=== PATIENT | female | born 1985 ===

== ENCOUNTER 2021-08-28 00:50 | Inpatient (IN) | payer MEDICAID, SELFPAY ==
[2021-08-28 01:47] VITALS: BP 129/92; PULSE 68; RESP 18; TEMP 37.2; O2SAT 98
[2021-08-28 01:48] VITALS: BMI 31.1
[2021-08-28] MEDS: acetaminophen 325 mg Tablet 650 MG PO ×2 (04:46→21:05)
[2021-08-28] MEDS: blistex lip oint 7 gm Tube 1 APPLIC TOPICAL ×2 (04:54→17:31)
[2021-08-28 06:00] VITALS: BP 125/83; PULSE 70; RESP 17; TEMP 37.2; O2SAT 96
[2021-08-28] MEDS: cephALEXin 500 mg Capsule PO ×2 (08:26→21:05)
--- NOTE | 2021-08-28 11:58 | NPU.GN ---
[facility] Topic:Von General Mood of Group: Manda did not attend group therapy today, she wanted to sleep.
--- NOTE | 2021-08-28 11:59 | NPU.GN ---
[facility] Topic:Von General Mood of Group: Manda did not attend group therapy today she wanted to sleep.
[2021-08-28 14:00] VITALS: BP 130/72; PULSE 75; RESP 18; TEMP 36.8; O2SAT 96
--- NOTE | 2021-08-28 14:36 | PC.NURSE ---
TC TO [facility] TO CONFIRM PATIENTS HOME MEDICATIONS -CELEBREX 200MG PO BID -ZYRTEC 10MG DAILY -SEROQUEL 200MG Q AM 1/2 TAB NOON 1/2 TAB HS -GABAPENTIN 600MG TID -CYMBALTA 60 DELAYED RELEASED DAILY -TOPAMAX 50MG BID
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
[2021-08-28 20:39] VITALS: BP 107/67; PULSE 79; RESP 15; TEMP 36.6; O2SAT 97
[2021-08-28] MEDS: hyDROXYzine 25 mg Capsule 50 MG PO (21:05)
[2021-08-28] MEDS: trazodone 50 mg Tablet PO (21:05)
[2021-08-29 06:00] VITALS: BP 119/73; PULSE 65; RESP 16; TEMP 36.4; O2SAT 98
[2021-08-29] MEDS: cephALEXin 500 mg Capsule PO ×2 (09:40→21:03)
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
--- NOTE | 2021-08-29 12:18 | NPU.GN ---
[facility] Topic:Coping Skills Bingo/ Cross word puzzle General Mood of Group: Manda did not attend and participate in group therapy this morning. Manda wanted to sleep.
[2021-08-29 12:20] VITALS: PULSE 82; RESP 18; O2SAT 97
[2021-08-29 14:00] VITALS: BP 123/75; PULSE 82; RESP 15; TEMP 36.6; O2SAT 97
[2021-08-29 20:09] VITALS: BP 138/91; PULSE 84; RESP 17; TEMP 36.6; O2SAT 94
[2021-08-29 20:28] VITALS: PULSE 79; RESP 17; O2SAT 98
[2021-08-29] MEDS: quetiapine 100 mg Tablet PO (21:01)
[2021-08-29] MEDS: acetaminophen 325 mg Tablet 650 MG PO (21:01)
[2021-08-29] MEDS: gabapentin 300 mg Capsule 600 MG PO (21:01)
[2021-08-29] MEDS: trazodone 100 mg Tablet PO (21:03)
--- NOTE | 2021-08-30 04:16 | PC.NURSE ---
Patient resting in bed. Calm and cooperative with flat affect. Reports depression remains high this evening. Denies anxiety. Denies SI/HI or AVH. Also reported pain of a 10. Patient received PRN Tylenol to good effect with night meds. Has remained in bed resting with eyes closed. No further complaints have been voiced.
[2021-08-30 06:00] VITALS: BP 131/84; PULSE 72; RESP 17; TEMP 37; O2SAT 97
[2021-08-30] MEDS: cephALEXin 500 mg Capsule PO ×2 (08:24→20:27)
[2021-08-30] MEDS: gabapentin 300 mg Capsule 600 MG PO ×3 (08:25→20:27)
[2021-08-30] MEDS: topiramate 25 mg Tablet 50 MG PO (08:25)
[2021-08-30] MEDS: quetiapine 100 mg Tablet 200 MG PO (08:25)
[2021-08-30] MEDS: CELEcoxib 100 mg Capsule 200 MG PO ×2 (09:24→20:28)
[2021-08-30] MEDS: quetiapine 100 mg Tablet PO ×2 (12:37→20:28)
[2021-08-30] MEDS: topiramate 100 mg Tablet 50 MG PO (12:37)
--- NOTE | 2021-08-30 13:06 | NPU.GN ---
[facility] Topic:Coping Kills Checklist General Mood of Group: Manda did attend group today and was talkative and participated. When it came to sharing the activity that she did she did not want to participate .
[2021-08-30 14:00] VITALS: BP 117/63; PULSE 87; RESP 20; TEMP 36.9; O2SAT 98
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
[2021-08-30 19:50] VITALS: PULSE 66; RESP 16; O2SAT 97
[2021-08-30] MEDS: albuterol 8 gm MDI 4 PUFF INHALATION (19:50)
[2021-08-30 19:56] VITALS: BP 121/78; PULSE 85; RESP 17; TEMP 36.4; O2SAT 100
--- NOTE | 2021-08-30 20:00 | PC.NURSE ---
Upon assessment patient lying in bed. Patient alert/groggy. Patient rated depression 9, anxiety 7. She c/o pain all over 910. Patient was lethargic and encouraged to drink more fluids. Patient has been withdrawn and isolating to her room. Will continue to monitor and follow plan of care. Q 15 min safety checks per protocol.
[2021-08-30] MEDS: trazodone 100 mg Tablet PO (20:27)
[2021-08-30] MEDS: acetaminophen 325 mg Tablet 650 MG PO (20:28)
[2021-08-31 06:00] VITALS: BP 140/76; PULSE 77; RESP 19; TEMP 36.6; O2SAT 96
[2021-08-31] MEDS: albuterol 8 gm MDI 4 PUFF INHALATION ×2 (09:10→19:45)
[2021-08-31 09:12] VITALS: PULSE 71; RESP 18; O2SAT 98
[2021-08-31] MEDS: gabapentin 300 mg Capsule 600 MG PO ×3 (09:46→21:44)
[2021-08-31] MEDS: CELEcoxib 100 mg Capsule 200 MG PO ×2 (09:46→17:44)
[2021-08-31] MEDS: topiramate 25 mg Tablet 50 MG PO (09:46)
[2021-08-31] MEDS: cephALEXin 500 mg Capsule PO ×2 (09:47→21:44)
[2021-08-31] MEDS: quetiapine 100 mg Tablet 200 MG PO (09:47)
[2021-08-31] MEDS: topiramate 100 mg Tablet 50 MG PO (11:39)
[2021-08-31] MEDS: quetiapine 100 mg Tablet PO ×2 (11:40→21:44)
[2021-08-31 14:00] VITALS: BP 118/74; PULSE 84; RESP 17; TEMP 37; O2SAT 99
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
--- NOTE | 2021-08-31 17:07 | PC.NURSE ---
clothing Pt stated that she did not want to wear her dirty clothes home that she arrived in. Pt wishes to have laundry wash her clothing.
[2021-08-31] MEDS: lamoTRIgine 25 mg Tablet PO (17:44)
[2021-08-31 19:45] VITALS: PULSE 74; RESP 16; O2SAT 99
[2021-08-31 21:03] VITALS: BP 107/68; PULSE 89; RESP 15; TEMP 36.7; O2SAT 99
[2021-08-31] MEDS: trazodone 100 mg Tablet PO (21:45)
[2021-09-01 06:00] VITALS: BP 102/66; PULSE 60; RESP 18; TEMP 37; O2SAT 100
[2021-09-01] MEDS: albuterol 8 gm MDI 4 PUFF INHALATION ×2 (09:14→19:20)
[2021-09-01 10:07] VITALS: PULSE 60; RESP 18; O2SAT 98
[2021-09-01] MEDS: gabapentin 300 mg Capsule 600 MG PO ×3 (11:14→20:39)
[2021-09-01] MEDS: CELEcoxib 100 mg Capsule 200 MG PO ×2 (11:14→17:21)
[2021-09-01] MEDS: quetiapine 100 mg Tablet 200 MG PO (11:15)
[2021-09-01] MEDS: lamoTRIgine 25 mg Tablet PO (11:15)
[2021-09-01] MEDS: topiramate 25 mg Tablet 50 MG PO (11:15)
[2021-09-01] MEDS: cephALEXin 500 mg Capsule PO ×2 (11:19→20:39)
[2021-09-01 12:00] VITALS: O2SAT 98
[2021-09-01] MEDS: topiramate 100 mg Tablet 50 MG PO (12:49)
[2021-09-01] MEDS: quetiapine 100 mg Tablet PO ×2 (12:49→20:39)
[2021-09-01 14:00] VITALS: BP 99/62; PULSE 101; RESP 20; TEMP 36.9; O2SAT 96
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
[2021-09-01] MEDS: nicotine 21 mg Patch 1 PATCH TRANSDERMA (15:04)
[2021-09-01 19:20] VITALS: PULSE 99; RESP 16; O2SAT 98
[2021-09-01] MEDS: trazodone 100 mg Tablet PO (20:39)
[2021-09-01] MEDS: hyDROXYzine 25 mg Capsule 50 MG PO (20:50)
[2021-09-01 22:00] VITALS: BP 130/80; PULSE 101; RESP 18; TEMP 36.8; O2SAT 97
--- NOTE | 2021-09-02 01:29 | PC.NURSE ---
Patient requested and received PRN medications- Vistaril- 2150 for anxiety to good effect. No further complaints at this time.
[2021-09-02] MEDS: trazodone 50 mg Tablet PO (02:13)
--- NOTE | 2021-09-02 03:54 | PC.NURSE ---
Patient up at 0200. Reports waking frequently. Patient ate snack and took PRN Trazodone at 0215. Patient has been in bed resting with eyes closed since. No further complaints at this time.
[2021-09-02 06:00] VITALS: BP 105/71; PULSE 80; RESP 17; TEMP 36.9; O2SAT 98
[2021-09-02] MEDS: lamoTRIgine 25 mg Tablet PO (08:25)
[2021-09-02] MEDS: quetiapine 100 mg Tablet 200 MG PO (08:25)
[2021-09-02] MEDS: CELEcoxib 100 mg Capsule 200 MG PO ×2 (08:25→20:30)
[2021-09-02] MEDS: gabapentin 300 mg Capsule 600 MG PO ×3 (08:26→20:28)
[2021-09-02] MEDS: cephALEXin 500 mg Capsule PO ×2 (08:26→20:30)
[2021-09-02] MEDS: topiramate 25 mg Tablet 50 MG PO (08:26)
[2021-09-02] MEDS: albuterol 8 gm MDI 4 PUFF INHALATION ×2 (11:00→20:25)
--- NOTE | 2021-09-02 11:08 | PC.NURSE ---
PER DR. RUSSELL, PATIENT MAY SHAVE WITH SUPERVISION.
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
[2021-09-02 11:19] VITALS: PULSE 80; RESP 16; O2SAT 98
[2021-09-02] MEDS: quetiapine 100 mg Tablet PO ×2 (12:11→20:29)
[2021-09-02] MEDS: topiramate 100 mg Tablet 50 MG PO (12:11)
[2021-09-02] MEDS: nicotine 21 mg Patch 1 PATCH TRANSDERMA (12:11)
[2021-09-02 14:00] VITALS: BP 97/62; PULSE 98; RESP 20; TEMP 36.9; O2SAT 96
[2021-09-02] MEDS: acetaminophen 325 mg Tablet 650 MG PO (18:06)
[2021-09-02 20:00] VITALS: BP 121/78; PULSE 98; RESP 18; TEMP 36.8; O2SAT 98
[2021-09-02 20:25] VITALS: PULSE 84; RESP 16; O2SAT 99
[2021-09-02] MEDS: trazodone 100 mg Tablet PO (20:30)
[2021-09-02] MEDS: hyDROXYzine 25 mg Capsule 50 MG PO (22:39)
[2021-09-02] MEDS: ibuprofen 600 mg Tablet PO (22:39)
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
[2021-09-03 06:00] VITALS: BP 111/72; PULSE 87; RESP 20; TEMP 36.9; O2SAT 97
[2021-09-03 07:50] VITALS: PULSE 101; RESP 16; O2SAT 98
[2021-09-03] MEDS: cephALEXin 500 mg Capsule PO ×2 (07:50→20:36)
[2021-09-03] MEDS: lamoTRIgine 25 mg Tablet PO (07:50)
[2021-09-03] MEDS: albuterol 8 gm MDI 4 PUFF INHALATION (07:50)
[2021-09-03] MEDS: CELEcoxib 100 mg Capsule 200 MG PO ×2 (07:50→20:35)
[2021-09-03] MEDS: topiramate 25 mg Tablet 50 MG PO (07:51)
[2021-09-03] MEDS: gabapentin 300 mg Capsule 600 MG PO ×3 (07:51→20:36)
[2021-09-03] MEDS: quetiapine 100 mg Tablet 200 MG PO (07:51)
--- NOTE | 2021-09-03 08:16 | PC.NURSE ---
PATIENT CAME TO DESK ASKING FOR SUPPLIES TO TAKE A SHOWER, STAFF COMPLIED, SHE TOOK ITEMS TO ROOM AND WENT BACK TO BED
[2021-09-03] MEDS: nicotine 21 mg Patch 1 PATCH TRANSDERMA (09:00)
[2021-09-03] MEDS: topiramate 100 mg Tablet 50 MG PO (12:15)
[2021-09-03 14:00] VITALS: BP 100/61; PULSE 101; RESP 20; TEMP 36.7; O2SAT 99
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
[2021-09-03] MEDS: OLANZapine 5 mg ODT PO (17:51)
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
--- NOTE | 2021-09-03 19:29 | NPU.GN ---
[facility] Group Topic:Stress General Mood of Group:Patient was in group on time, dressed appropriately, with good hygiene. The patient participated in group activities. Today the group was able to work on the stress worksheet. Each individually and together. The patient did share information from the worksheet with the group. The patient did ask questions and responded to other patients in the group.
[2021-09-03 20:22] VITALS: BP 126/79; PULSE 86; RESP 15; TEMP 37; O2SAT 98
[2021-09-03] MEDS: hyDROXYzine 25 mg Capsule 50 MG PO (20:35)
[2021-09-03] MEDS: trazodone 100 mg Tablet PO (20:35)
[2021-09-03] MEDS: quetiapine 100 mg Tablet PO (20:35)
[2021-09-03] MEDS: ibuprofen 600 mg Tablet PO (20:35)
--- NOTE | 2021-09-03 20:35 | PC.NURSE ---
pt c/o increased anxiety due to a headache, motrin 600mg po and vistaril 50mg po given.
--- NOTE | 2021-09-03 22:00 | PC.NURSE ---
pt resting quietly with both eyes closed.
[2021-09-03 23:02] VITALS: PULSE 90; RESP 16; O2SAT 97
--- NOTE | 2021-09-04 01:21 | PC.NURSE ---
Patient up at start of shift. Denied SI/HI or AVH. Did endorse mild anxiety and tension. Took PRN Vistaril and listened to a song to help. These things were effective and patient went to bed. Also took PRN Ibuprofen to good effect at . In bed with eyes closed at this time. No further complaints voiced. No signs of distress noted.
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
[2021-09-04 06:00] VITALS: BP 102/69; PULSE 72; RESP 18; TEMP 37.1; O2SAT 98
--- NOTE | 2021-09-04 07:52 | US_ITS ---
WS: [id number] ULTRASOUND SOFT TISSUES LEFT antecubital fossa. HISTORY: left upper extremity, vascular nodularity at AC fossa, pain COMPARISON: None available. TECHNIQUE: 2-D and color Doppler imaging is submitted. Hyperechoic soft tissue in the antecubital fossa with central cystic area. This area of abnormality m easures 2.5 x 1.0 x 2.7 cm. There is no increased vascularity. This is probably the residual of a hem atoma. No focal abscess collection. US/US soft tissue/extremity 18509 IMPRESSION: Soft tissue hematoma in the LEFT antecubital fossa.
[2021-09-04] MEDS: gabapentin 300 mg Capsule 600 MG PO ×3 (08:32→20:00)
[2021-09-04] MEDS: lamoTRIgine 25 mg Tablet PO (08:32)
[2021-09-04] MEDS: CELEcoxib 100 mg Capsule 200 MG PO ×2 (08:32→20:00)
[2021-09-04] MEDS: cephALEXin 500 mg Capsule PO (08:32)
[2021-09-04] MEDS: topiramate 25 mg Tablet 50 MG PO (08:32)
--- NOTE | 2021-09-04 08:38 | PC.NURSE ---
refused scheduled Seroquel
[2021-09-04] MEDS: albuterol 8 gm MDI 4 PUFF INHALATION ×2 (09:00→15:50)
--- NOTE | 2021-09-04 09:44 | USCV_ITS ---
Manda Villanueva Age: 36 Gender: F : 1985 Exam Date: 09/04/2021 13:30 Ordering Phys: Thai Brito MD Technologist: TONYA [place] [facility] [place] Indication: vascular nodularity at ac fossa. pain PROCEDURES: Venous duplex imaging was performed in only the left upper extremity. The following venous structures were evaluated: internal jugular vein, subclavian vein, axillary vein, and brachial veins. In addition, the basilic vein, cephalic vein, radial vein, and ulnar vein. Serial compression, augmentation maneuvers, and spectral Doppler flow evaluation were performed. FINDINGS: Normal 2-D, color Doppler and phasicity noted in the left upper extremity venous system extending from the left internal jugular vein through the main forearm. No thrombosis or occlusion noted. CONCLUSIONS No left upper extremity DVT. Dr. Lyubov No DO (Electronically Signed) Final Date: 04 September 2021 14:50 S
[2021-09-04] MEDS: nicotine 21 mg Patch 1 PATCH TRANSDERMA (11:22)
[2021-09-04] MEDS: topiramate 100 mg Tablet 50 MG PO (12:04)
--- NOTE | 2021-09-04 12:05 | PC.NURSE ---
REFUSED SCHEDULED SEROQUEL @ 1200
--- NOTE | 2021-09-04 13:18 | PC.NURSE ---
off unit to ultrasound
[2021-09-04 13:26] LABS: C Reactive Protein 1.5 mg/L (0.0-4.9)
[2021-09-04 14:00] VITALS: BP 126/79; PULSE 104; RESP 18; TEMP 37; O2SAT 97
[2021-09-04 14:32] LABS: Alkaline Phosphatase 65 IU/L (35-105); Blood Urea Nitrogen 21 mg/dL (6-20); Carbon Dioxide 21 mmol/L (22-29); Chloride 102 mmol/L (98-107); Glomerular Filtration Rate 114.4 mL/min (90-130); Glucose 92 mg/dL (65-115); Osmolality Calculated 289 mOsm/kg (285-295); Sodium 138 mmol/L (136-145); Thyroid Stimulating Hormone 1.67 uIU/mL (0.27-4.20); Total Bilirubin 0.2 mg/dL (0.15-1.2)
[2021-09-04 14:37] LABS: Anion Gap 19.3 (5-19); Potassium 4.3 mmol/L (3.5-5.1)
[2021-09-04 14:50] LABS: Iron 68 ug/dL (37-145); Percent Saturation 18.6 % (20-50); Total Iron Binding Capacity 364 mcg/dl; Unsaturated Iron Binding 296 ug/dL (112-347)
[2021-09-04] MEDS: quetiapine 100 mg Tablet PO ×3 (15:08→20:00)
[2021-09-04 15:59] LABS: Alanine Aminotransferase 17 U/L (0-33); Aspartate Amino Transferase 16 U/L (0-32)
--- NOTE | 2021-09-04 16:23 | NPU.GN ---
[facility] Group Topic:Jinga (Addiction) General Mood of Group: Patient did come to group and did participate. Patient was on time, dressed appropriately and had good hygiene. The group played addiction Jinga. They read a question off of each jinga block they pulled and shared with the group the answer to their question. Group did make a brief trip outside for some air. They were all in a great mood, they all communicated with each other well.
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
[2021-09-04] MEDS: amoxicillin-clav 500-125 mg Tablet 1 TAB PO (20:00)
[2021-09-04] MEDS: trazodone 100 mg Tablet PO (20:00)
[2021-09-04 20:07] VITALS: RESP 17; TEMP 36.6; O2SAT 99
[2021-09-04] MEDS: nicotine 2 mg Gum BUCCAL (20:17)
--- NOTE | 2021-09-05 02:13 | PC.NURSE ---
Patient up at start of shift. Calm and cooperative. Denies SI/HI or AVH. Denied anxiety and depression at start of shift. Patient has been sleeping much of night. Is awake, eating snack in room at this time. Calm and cooperative. No complaints.
[2021-09-05 06:00] VITALS: BP 131/76; PULSE 79; RESP 18; TEMP 36.4; O2SAT 95
[2021-09-05] MEDS: levoFLOXacin 500 mg Tablet PO (07:00)
[2021-09-05 08:07] LABS: Basophils % 0.3 %; Eosinophils # 0.2 10^3/uL (0.0-0.8); Hematocrit 36.8 % (37.0-47.0); Hemoglobin 11.7 g/dL (11.5-15.3); Lymphocytes % 25.5 %; Mean Corpuscular HGB Conc 31.8 g/dL (30.0-36.0); Mean Corpuscular Volume 91.3 fl (81-99); Mean Platelet Volume 10.7 fL (7.4-10.4); Monocytes # 0.6 10^3/uL (0.2-0.9); Monocytes % 7.4 %; Neutrophils # 5.01 10^3/uL (1.8-7.7); Nucleated Red Blood Cells % 0 %; Platelet Count 279 10^3/cmm (130-400); Red Blood Count 4.03 10^6/uL (4.1-5.3); Red Cell Distribution Width 12.9 % (12.1-15.1)
[2021-09-05 08:19] LABS: D Dimer 0.48 ug/mIFEU (0-0.59)
[2021-09-05 08:23] VITALS: PULSE 99; RESP 20; O2SAT 98
[2021-09-05] MEDS: albuterol 8 gm MDI 4 PUFF INHALATION (08:23)
[2021-09-05 08:51] LABS: Estmated Average Glucose 105; Hemoglobin A1C 5.3 % (4.0-6.0)
[2021-09-05 09:00] VITALS: O2SAT 98
[2021-09-05] MEDS: gabapentin 300 mg Capsule 600 MG PO ×3 (09:17→20:11)
[2021-09-05] MEDS: topiramate 25 mg Tablet 50 MG PO (09:17)
[2021-09-05] MEDS: amoxicillin-clav 500-125 mg Tablet 1 TAB PO ×3 (09:17→20:15)
[2021-09-05] MEDS: lamoTRIgine 25 mg Tablet PO (09:17)
[2021-09-05] MEDS: CELEcoxib 100 mg Capsule 200 MG PO ×2 (09:17→20:11)
[2021-09-05] MEDS: nicotine 21 mg Patch 1 PATCH TRANSDERMA (10:37)
--- NOTE | 2021-09-05 11:35 | NPU.GN ---
[facility] NeuroPsych Unit Group Topic:Stress Map General Mood of Group: Manda Martinez attended group today. Manda was active with the group activity and also gave feedback and shared her story with others. Manda also tried to help another patient with providing DBT advice to the patient to help with anxiety. Manda was in good spirits today.
[2021-09-05] MEDS: quetiapine 100 mg Tablet PO ×2 (13:09→20:11)
[2021-09-05] MEDS: topiramate 100 mg Tablet 50 MG PO (13:09)
[2021-09-05 13:46] VITALS: BP 126/79; PULSE 108; RESP 20; TEMP 37.1; O2SAT 96
--- NOTE | 2021-09-05 13:58 | PC.NURSE ---
prn Administered Zofran 4mg to pt c/o nausea. Will continue to monitor.
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
[2021-09-05] MEDS: hyDROXYzine 25 mg Capsule 50 MG PO (19:32)
[2021-09-05 20:11] VITALS: BP 114/71; PULSE 112; RESP 18; TEMP 36.7; O2SAT 97
[2021-09-05] MEDS: trazodone 100 mg Tablet PO (20:11)
[2021-09-06] MEDS: hyDROXYzine 25 mg Capsule 50 MG PO ×2 (03:23→21:21)
[2021-09-06 05:49] VITALS: BP 101/65; PULSE 73; RESP 18; TEMP 37.3; O2SAT 96
--- NOTE | 2021-09-06 06:27 | PC.NURSE ---
Patient calm and cooperative at start of shift. Interacting well with peers. Good affect, smiling. Denies any SI/HI, AVH, anxiety and depression at this time. In bed resting with eyes closed most of night. Did wake when new admit arrived to room. Was startled upon waking and became tearful. Patient remained in bed initially but then did request PRN Vistaril. Took Vistaril to good effect and was able to return to bed.
--- NOTE | 2021-09-06 06:58 | PC.NURSE ---
Addendum entered by Lauren Carroll RN 09/06/21 07:20: Patient returned and asked nurse to include in note that she would like to try Wellbutrin instead if able to help with cravings as well. Original Note: Cymbalta Patient reports taking Cymbalta 60 mg QD prior to admitting to unit. States that she thought she had been taking it here. Reports feeling more emotional and feeling shocks/zaps d/t not being on it now. States these feelings are what made her come and ask if she was currently on it here. Patient would like to resume this LEDA.
[2021-09-06] MEDS: topiramate 25 mg Tablet 50 MG PO (09:15)
[2021-09-06] MEDS: gabapentin 400 mg Capsule 800 MG PO ×4 (09:15→20:33)
[2021-09-06] MEDS: lamoTRIgine 25 mg Tablet PO (09:15)
[2021-09-06] MEDS: amoxicillin-clav 500-125 mg Tablet 1 TAB PO ×3 (09:16→15:44)
[2021-09-06] MEDS: levoFLOXacin 500 mg Tablet PO (09:16)
[2021-09-06] MEDS: quetiapine 100 mg Tablet 200 MG PO (09:16)
[2021-09-06] MEDS: CELEcoxib 100 mg Capsule 200 MG PO ×2 (09:16→20:33)
[2021-09-06] MEDS: nicotine 21 mg Patch 1 PATCH TRANSDERMA (09:23)
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
--- NOTE | 2021-09-06 11:59 | NPU.GN ---
[facility] NeuroPsych Unit Group Topic:My Favorite Things General Mood of Group: Manda did attend group and participated. Manda did well with other in group and shared her favorite things to do that were therapeutic to her.
[2021-09-06 12:23] VITALS: PULSE 88; RESP 18; O2SAT 98
[2021-09-06] MEDS: albuterol 8 gm MDI 4 PUFF INHALATION ×2 (12:23→19:51)
[2021-09-06] MEDS: buPROPion SR (12 HR) 100 mg Tablet PO ×2 (12:35→18:23)
[2021-09-06] MEDS: topiramate 100 mg Tablet 50 MG PO (12:35)
[2021-09-06 12:44] LABS: Erythrocyte Sedimentation Rate 17 mm/hr (0-15)
[2021-09-06 14:00] VITALS: BP 109/79; PULSE 77; RESP 16; TEMP 36.8; O2SAT 97
--- NOTE | 2021-09-06 18:26 | PC.NURSE ---
PATIENT CAME AND GOT SUPPLIES TO TAKE A SHOWER, SHUT HER DOOR. WHEN STAFF ATTEMPTED TO RE-OPEN IT SHE BEGAN SLAMMING IT CLOSED AGAIN. PLACED MY FOOT IN THE DOORWAY, AND ADVISED HER SHE COULD NOT CLOSE THE DOOR COMPLETELY. SHE CLOSED THE DOOR TO APPROX 4 INCHES AND PLACED A BLANKET BEHIND IT. ADVISED PATIENT STAFF HAS TO BE ABLE TO SEE INSIDE THE ROOM WITH NO OBSTRUCTION.
[2021-09-06 19:51] VITALS: PULSE 100; RESP 16; O2SAT 99
[2021-09-06] MEDS: nicotine 2 mg Gum BUCCAL (20:33)
[2021-09-06] MEDS: trazodone 100 mg Tablet PO (20:33)
[2021-09-06] MEDS: quetiapine 100 mg Tablet PO (20:34)
[2021-09-06 21:32] VITALS: BP 117/65; PULSE 93; RESP 18; TEMP 36.9; O2SAT 96
[2021-09-07 06:00] VITALS: BP 108/70; PULSE 90; RESP 16; TEMP 36.7; O2SAT 97
[2021-09-07] MEDS: levoFLOXacin 500 mg Tablet PO (06:08)
[2021-09-07] MEDS: quetiapine 100 mg Tablet 200 MG PO (08:15)
[2021-09-07] MEDS: lamoTRIgine 25 mg Tablet PO (08:15)
[2021-09-07] MEDS: topiramate 25 mg Tablet 50 MG PO (08:16)
[2021-09-07] MEDS: nicotine 21 mg Patch 1 PATCH TRANSDERMA (08:16)
[2021-09-07] MEDS: gabapentin 400 mg Capsule 800 MG PO ×3 (08:16→20:44)
[2021-09-07] MEDS: pantoprazole DR 40 mg Tablet PO (08:16)
[2021-09-07] MEDS: buPROPion SR (12 HR) 100 mg Tablet PO ×2 (08:16→20:45)
[2021-09-07] MEDS: polyethylene glycol 3350 Pkt 17 gm PO ×2 (08:38→17:00)
[2021-09-07] MEDS: CELEcoxib 100 mg Capsule 200 MG PO ×2 (09:47→20:44)
[2021-09-07] MEDS: amoxicillin-clav 500-125 mg Tablet 1 TAB PO ×3 (09:47→20:44)
[2021-09-07] MEDS: albuterol 8 gm MDI 4 PUFF INHALATION ×2 (10:38→19:30)
[2021-09-07 10:39] VITALS: PULSE 89; RESP 18; O2SAT 99
[2021-09-07] MEDS: topiramate 100 mg Tablet 50 MG PO (12:02)
--- NOTE | 2021-09-07 12:20 | NPU.GN ---
[facility]Psych Unit Group Topic:Von General Mood of Group: Manda did not attend group today.
[2021-09-07 14:00] VITALS: BP 108/70; PULSE 89; RESP 18; TEMP 36.7; O2SAT 99
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
[2021-09-07] MEDS: nicotine 2 mg Gum BUCCAL ×2 (17:00→20:40)
[2021-09-07] MEDS: mineral oil-petrolat oint 106 gm 1 APPLIC TOPICAL (18:03)
[2021-09-07 19:30] VITALS: PULSE 101; RESP 16; O2SAT 98
[2021-09-07 20:04] VITALS: BP 122/79; PULSE 110; RESP 15; O2SAT 100
[2021-09-07] MEDS: trazodone 100 mg Tablet PO (20:44)
[2021-09-07] MEDS: quetiapine 100 mg Tablet PO (20:45)
[2021-09-08] MEDS: levoFLOXacin 500 mg Tablet PO (05:21)
[2021-09-08 06:00] VITALS: PULSE 88; RESP 18; O2SAT 97
[2021-09-08] MEDS: CELEcoxib 100 mg Capsule 200 MG PO ×2 (08:58→20:33)
[2021-09-08] MEDS: lamoTRIgine 25 mg Tablet PO (08:58)
[2021-09-08] MEDS: topiramate 25 mg Tablet 50 MG PO (08:58)
[2021-09-08] MEDS: pantoprazole DR 40 mg Tablet PO (08:58)
[2021-09-08] MEDS: amoxicillin-clav 500-125 mg Tablet 1 TAB PO ×3 (08:58→20:32)
[2021-09-08] MEDS: gabapentin 400 mg Capsule 800 MG PO ×3 (08:59→20:33)
[2021-09-08] MEDS: nicotine 21 mg Patch 1 PATCH TRANSDERMA (08:59)
[2021-09-08] MEDS: polyethylene glycol 3350 Pkt 17 gm PO ×2 (08:59→17:46)
[2021-09-08] MEDS: buPROPion SR (12 HR) 100 mg Tablet 200 MG PO (08:59)
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
[2021-09-08 09:32] VITALS: PULSE 101; RESP 18; O2SAT 98
[2021-09-08] MEDS: albuterol 8 gm MDI 4 PUFF INHALATION (09:32)
[2021-09-08 14:00] VITALS: BP 127/85; PULSE 62; RESP 17; TEMP 36.6; O2SAT 97
[2021-09-08] MEDS: topiramate 100 mg Tablet 50 MG PO (14:12)
[2021-09-08] MEDS: nystatin 100,000 unit/mL UDC 5 mL 100000 UNIT PO ×2 (16:43→20:51)
[2021-09-08] MEDS: fluconazole 100 mg Tablet 150 MG PO (16:44)
[2021-09-08] MEDS: hyDROXYzine 25 mg Capsule 50 MG PO (17:46)
[2021-09-08] MEDS: nicotine 2 mg Gum BUCCAL ×2 (17:54→20:56)
[2021-09-08 20:21] VITALS: BP 113/75; PULSE 76; RESP 15; TEMP 36.8; O2SAT 99
[2021-09-08] MEDS: ondansetron 4 MG Tablet PO (20:32)
[2021-09-08] MEDS: buPROPion SR (12 HR) 100 mg Tablet PO (20:33)
[2021-09-08] MEDS: quetiapine 100 mg Tablet PO (20:33)
[2021-09-08] MEDS: trazodone 100 mg Tablet PO (20:33)
[2021-09-09 06:00] VITALS: BP 100/82; PULSE 90; RESP 17; TEMP 37.1; O2SAT 97; BMI 31.1
[2021-09-09] MEDS: levoFLOXacin 500 mg Tablet PO (06:46)
[2021-09-09 09:23] VITALS: PULSE 97; RESP 16; O2SAT 100
[2021-09-09] MEDS: albuterol 8 gm MDI 4 PUFF INHALATION (09:23)
[2021-09-09] MEDS: topiramate 25 mg Tablet 50 MG PO (09:45)
[2021-09-09] MEDS: buPROPion SR (12 HR) 100 mg Tablet 200 MG PO (09:45)
[2021-09-09] MEDS: amoxicillin-clav 500-125 mg Tablet 1 TAB PO ×2 (09:45→14:52)
[2021-09-09] MEDS: CELEcoxib 100 mg Capsule 200 MG PO ×2 (09:45→20:40)
[2021-09-09] MEDS: gabapentin 400 mg Capsule 800 MG PO ×3 (09:45→20:39)
[2021-09-09] MEDS: lamoTRIgine 25 mg Tablet PO (09:45)
[2021-09-09] MEDS: nystatin 100,000 unit/mL UDC 5 mL 100000 UNIT PO ×3 (09:46→17:10)
[2021-09-09] MEDS: polyethylene glycol 3350 Pkt 17 gm PO ×2 (09:46→17:10)
[2021-09-09] MEDS: acetaminophen 325 mg Tablet 650 MG PO (09:46)
[2021-09-09] MEDS: hyDROXYzine 25 mg Capsule 50 MG PO (09:46)
[2021-09-09] MEDS: pantoprazole DR 40 mg Tablet PO (09:48)
[2021-09-09] MEDS: nicotine 21 mg Patch 1 PATCH TRANSDERMA (09:48)
[2021-09-09] MEDS: quetiapine 100 mg Tablet 200 MG PO (10:32)
[2021-09-09] MEDS: topiramate 100 mg Tablet 50 MG PO (12:38)
[2021-09-09] MEDS: quetiapine 100 mg Tablet PO ×2 (12:39→20:40)
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
[2021-09-09 14:00] VITALS: BP 90/48; PULSE 70; RESP 17; TEMP 36.3; O2SAT 96
[2021-09-09] MEDS: nicotine 2 mg Gum BUCCAL (17:10)
[2021-09-09 20:10] VITALS: RESP 15
--- NOTE | 2021-09-09 20:10 | PC.NURSE ---
will obtain vitals later/respirations were observed
[2021-09-09] MEDS: trazodone 100 mg Tablet PO (20:39)
[2021-09-09] MEDS: trazodone 50 mg Tablet PO (20:39)
[2021-09-09] MEDS: buPROPion SR (12 HR) 100 mg Tablet PO (20:40)
--- NOTE | 2021-09-10 04:31 | PC.NURSE ---
Patient took PRN Trazodone at 2038 to good effect. Has been in bed resting with eyes closed throughout night.
[2021-09-10 06:00] VITALS: BP 91/62; PULSE 58; RESP 15; TEMP 36.8; O2SAT 99
[2021-09-10] MEDS: nicotine 21 mg Patch 1 PATCH TRANSDERMA (08:24)
[2021-09-10] MEDS: nystatin 100,000 unit/mL UDC 5 mL 100000 UNIT PO ×3 (08:24→18:44)
[2021-09-10] MEDS: polyethylene glycol 3350 Pkt 17 gm PO ×2 (08:25→20:52)
[2021-09-10] MEDS: topiramate 25 mg Tablet 50 MG PO (08:25)
[2021-09-10] MEDS: CELEcoxib 100 mg Capsule 200 MG PO ×2 (08:25→20:52)
[2021-09-10] MEDS: pantoprazole DR 40 mg Tablet PO (08:26)
[2021-09-10] MEDS: lamoTRIgine 25 mg Tablet PO (08:26)
[2021-09-10] MEDS: gabapentin 400 mg Capsule 800 MG PO ×3 (08:26→20:52)
[2021-09-10] MEDS: buPROPion SR (12 HR) 100 mg Tablet 200 MG PO (08:26)
--- NOTE | 2021-09-10 08:27 | PC.NURSE ---
REFUSED SCHEDULED SEROQUEL THIS MORNING
[2021-09-10] MEDS: albuterol 8 gm MDI 4 PUFF INHALATION ×2 (10:30→19:30)
--- NOTE | 2021-09-10 11:15 | NPU.GN ---
[facility] Group Topic:Triggers and Coping Skills General Mood of Group: Manda did not attend or participate in group this morning .
[2021-09-10] MEDS: topiramate 100 mg Tablet 50 MG PO (11:42)
[2021-09-10] MEDS: hyDROXYzine 25 mg Capsule 50 MG PO (11:42)
--- NOTE | 2021-09-10 11:43 | PC.NURSE ---
refused scheduled Seroquel @ 1200
--- NOTE | 2021-09-10 11:43 | PC.NURSE ---
PRN VISTARIL 50 MG GIVEN PO PER PT C/O STATED ANXIETY
[2021-09-10 14:00] VITALS: BP 154/91; PULSE 89; RESP 17; TEMP 36.7; O2SAT 97
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
[2021-09-10] MEDS: magnesium hydroxide 30 mL UDC PO (18:44)
--- NOTE | 2021-09-10 18:45 | PC.NURSE ---
PRN MILK OF MAGNESIA 30 ML GIVEN PO PER PT C/O STATED CONSTIPATION
[2021-09-10 19:13] LABS: SARS Covid-2 Antigen Negative (Negative)
[2021-09-10 19:30] VITALS: PULSE 99; RESP 16; O2SAT 99
[2021-09-10] MEDS: nicotine 2 mg Gum BUCCAL (19:31)
[2021-09-10] MEDS: trazodone 100 mg Tablet PO (20:52)
[2021-09-10] MEDS: buPROPion SR (12 HR) 100 mg Tablet PO (20:52)
[2021-09-10] MEDS: quetiapine 100 mg Tablet PO (20:52)
[2021-09-10] MEDS: trazodone 50 mg Tablet PO (20:52)
[2021-09-10 21:12] VITALS: BP 112/77; PULSE 88; RESP 18; TEMP 36.8; O2SAT 95
--- NOTE | 2021-09-11 04:59 | PC.NURSE ---
Patient in good mood in evening. Calm, cooperative and compliant with care. Received PRN Nicotine gum at 1930. Received PRN Trazodone at 2051 to good effect. Has been in bed resting with eyes closed most of shift.
[2021-09-11 05:48] VITALS: BP 102/61; PULSE 78; RESP 17; TEMP 36.8; O2SAT 96
[2021-09-11] MEDS: nystatin 100,000 unit/mL UDC 5 mL 100000 UNIT PO (08:34)
[2021-09-11] MEDS: polyethylene glycol 3350 Pkt 17 gm PO (08:34)
[2021-09-11] MEDS: quetiapine 100 mg Tablet 200 MG PO (08:35)
[2021-09-11] MEDS: pantoprazole DR 40 mg Tablet PO (08:35)
[2021-09-11] MEDS: lamoTRIgine 25 mg Tablet PO (08:35)
[2021-09-11] MEDS: topiramate 25 mg Tablet 50 MG PO (08:35)
[2021-09-11] MEDS: gabapentin 400 mg Capsule 800 MG PO (08:35)
[2021-09-11] MEDS: CELEcoxib 100 mg Capsule 200 MG PO (08:36)
[2021-09-11] MEDS: nicotine 21 mg Patch 1 PATCH TRANSDERMA (08:36)
[2021-09-11] MEDS: buPROPion SR (12 HR) 100 mg Tablet 200 MG PO (08:36)
[2021-09-11 09:07] VITALS: BP 102/61; PULSE 78; RESP 17; TEMP 36.8; O2SAT 96
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
== END 2021-09-11 10:58 | disposition home or self-care (01) | DRG 882 ==
PROVIDERS: Hospitalist; Student in an Organized Health Care Education/Training Program; Admitting Provider Psychiatry & Neurology Psychiatry; Visit Provider Psychiatry & Neurology Child & Adolescent Psychiatry
DX: F43.11 Post-traumatic stress disorder, acute (principal); R45.851 Suicidal ideations; F15.20 Other stimulant dependence, uncomplicated; N39.0 Urinary tract infection, site not specified; F17.210 Nicotine dependence, cigarettes, uncomplicated; B37.9 Candidiasis, unspecified; G89.4 Chronic pain syndrome; M79.602 Pain in left arm; F44.6 Conversion disorder with sensory symptom or deficit
CPT/HCPCS: 36415; 76882; 80053; 83036; 83540; 83550; 84443; 85025; 85378; 85651; 86140; 87426; 93971; 94640; 94664; 97150; 97165; J3535; Q0162